=== PATIENT | female | born 1990 | race Caucasian/White ===

== ENCOUNTER 2017-06-03 01:14 | Emergency (ER) | payer MEDICAID ==
[~2017-06-03] VITALS: Ht 177.8 cm; Wt 80.5 kg
[2017-06-03] MEDS ORDERED: OXYcodone/APAP 5/325MG TABLET ONE (02:10)
[2017-06-03] MEDS ORDERED: ONDANSETRON ODT 4 MG ONE (02:10)
[2017-06-03] MEDS ORDERED: OXYcodone/APAP 5/325MG TABLET PO ONE (02:30)
[2017-06-03] MEDS ORDERED: ONDANSETRON ODT 4 MG PO ONE (02:30)
[2017-06-03 02:43] LABS: ASPARTATE AMINO TRANSFERASE 32 U/L (15-37); BLOOD UREA NITROGEN 21 mg/dL (7-18)
[2017-06-03 04:02] VITALS: BP 101/65
== END 2017-06-03 04:19 | disposition home or self-care (01) ==
LOC: ED 04:18
DX: N30.00 Acute cystitis without hematuria (principal); F17.210 Nicotine dependence, cigarettes, uncomplicated
CPT/HCPCS: 36415; 76830; 80053; 81001; 84703; 85025; 87086; 99285; Q0162

== ENCOUNTER 2017-09-25 06:28 | Emergency (ER) | payer MEDICAID ==
[~2017-09-25] VITALS: Ht 177.8 cm; Wt 72.7 kg
[2017-09-25 06:37] VITALS: BP 122/74
[2017-09-25] MEDS ORDERED: SODIUM CHLORIDE 0.9% 1,000ML IVBOLUS ONE (07:00)
[2017-09-25] MEDS ORDERED: ONDANSETRON 2MG/ML, 2ML IVPush ONE (07:00)
[2017-09-25] MEDS ORDERED: SODIUM CHLORIDE FLUSH 10ML SYR IVF ONE (07:00)
[2017-09-25] MEDS ORDERED: FAMOTIDINE 20 MG/2 ML IVP ONE (07:00)
[2017-09-25 07:14] LABS: HEMATOCRIT 40.1 % (34.6-47.8); WHITE BLOOD COUNT 8.5 x10^3/uL (3.4-10)
[2017-09-25 07:23] LABS: BLOOD UREA NITROGEN 14 mg/dL (7-18)
== END 2017-09-25 08:36 | disposition home or self-care (01) ==
LOC: ED 08:30
DX: O21.0 Mild hyperemesis gravidarum (principal); O26.891 Other specified pregnancy related conditions, first trimester; F10.20 Alcohol dependence, uncomplicated; F15.20 Other stimulant dependence, uncomplicated; Z3A.08 8 weeks gestation of pregnancy
CPT/HCPCS: 36415; 76801; 80048; 81001; 82040; 84702; 85025; 87086; 99285